=== PATIENT | female | born 1975 | race Caucasian/White ===

== ENCOUNTER 2017-07-20 20:45 | Emergency (ER) | payer BC, OTHER ==
[~2017-07-20] VITALS: Ht 172.7 cm; Wt 70.0 kg
[~2017-07-20 20:45] MED LIST: CLON0.5T3 PO; MELO15TA3 PO; MULT-506 PO; PSYL55.43 PO; ULT/50 PO
[2017-07-20 20:50] VITALS: TEMP 36.9; O2SAT 95; Ht 172.7 cm; Wt 70.0 kg
[2017-07-20] MEDS ORDERED: ACETAMINOPHEN 500 MG TAB PO STA (20:58)
[2017-07-20] MEDS ORDERED: IBUPROFEN 800 MG TAB PO STA (20:58)
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
[2017-07-20] MEDS ORDERED: ULT50 PO (21:25)
[2017-07-20] MEDS ORDERED: PSYL58.636 PO (21:29)
--- NOTE | 2017-07-20 21:32 | DIAGNOSTIC IMAGING REPORT ---
LEFT FEMUR 2 VIEWS CLINICAL HISTORY: Fall. Left leg pain. FINDINGS: AP, frog-leg, and crosstable lateral views of the left femur are obtained. No prior studies are available for comparison at the time of dictation. The skeletal structures are well mineralized. There is no radiographic evidence of left femoral fracture. The hip and knee joints appear maintained. The visualized left hemipelvis is preserved. The overlying soft tissues are normal in appearance. Phleboliths are noted in the pelvis. IMPRESSION: Unremarkable radiographic assessment of the left femur. Electronically signed by: Cholo Faust M.D. 07/20/2017 9:31 PM Dictated Date/Time: 07/20/2017 9:30 PM
[2017-07-20] MEDS ORDERED: OXYC1TAB3 PO (21:58)
[2017-07-20] MEDS ORDERED: OXYCODONE IR HOME PACK PO ONE (22:00)
[2017-07-20 22:12] VITALS: BP 124/80; PULSE 88
== END 2017-07-20 22:18 | disposition home or self-care (01) ==
LOC: C.EDB 20:47 → C.EDA 22:18
DX: S70.12XA Contusion of left thigh, initial encounter (principal); V27.5XXA Motorcycle passenger injured in collision with fixed or stationary object in traffic accident, initial encounter

== ENCOUNTER 2021-12-26 15:36 | Inpatient (IN) ==
[2021-12-26] MEDS ORDERED: SODIUM CHLORIDE 0.9% 1000ML 1,000 ML IV STA (15:55)
[2021-12-26] MEDS ORDERED: PROMETHAZINE 6.25 MG/50.25 ML BAG IV STA (15:59)
[2021-12-26] MEDS ORDERED: KETOROLAC TROMETHAMINE 15 MG/ML VIAL IV ONE (15:59)
--- NOTE | 2021-12-26 16:11 | Emergency Department Note ---
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 intracranial abnormality. 2. Unremarkable CT angiogram of the brain. 3. 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 This is new from the 07/18/2020 examination. 4. There is minimal focal narrowing of the right vertebral artery just below the aneurysm. A tiny focal dissection is not excluded. 5. Otherwise unremarkable CT angiogram of the neck. ACT 112: Negative or not required by law. Electronically signed by: Cholo Faust M.D. 12/26/2021 6:22 PM Neck CTA 12/26/21 17:[address] OF THE BRAIN; CT ANGIOGRAM OF THE BRAIN; CT ANGIOGRAM OF THE NECK CLINICAL HISTORY: Headache. Right-sided neck pain. COMPARISON STUDY: CT angiogram of the head and neck dated 07/18/2020. TECHNIQUE: Unenhanced axial CT scan of the brain is performed. Subsequently, following the IV administration of 119 of Optiray 320, CT angiogram of the head and neck was performed from the aortic arch to the vertex. Images are reviewed in the axial, sagittal, and coronal planes. 3-D MIPS images are created and assessed. IV contrast was administered without complication. All measurements were calculated based on NASCET criteria. A dose lowering technique was utilized adhering to the principles of ALARA. CT DOSE: 1098.67 mGy.cm FINDINGS: Brain parenchyma: The brain parenchyma is normal in appearance. There is no hemorrhage, mass effect, or evidence of acute territorial ischemia by CT criteria. There is no evidence of enhancing mass lesion on the angiogram phase images. The ventricles, sulci, and cisterns are normal in configuration. Morrissey- white matter differentiation is preserved. No extra-axial fluid collection is seen. Thoracic aorta: Visualized portions of the thoracic aorta are normal in caliber. The aortic arch demonstrates bovine variant anatomy. Right carotid arterial system: The right common carotid artery is widely patent, as are the right internal and external carotid arteries. Left carotid arterial system: The left common carotid artery is widely patent, as are the left internal and external carotid arteries. Vertebral arteries: The vertebral arteries are widely patent bilaterally and codominant. 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 There is minimal focal narrowing below the aneurysm seen on axial image #252. Subclavian arteries: Widely patent bilaterally. Intracranial vasculature: The internal carotid arteries are patent at the skull base, as are the anterior and middle cerebral arteries bilaterally. The left A1 segment is diminutive. There is origin of the left posterior cerebral artery. The vertebrobasilar system and posterior cerebral arteries are widely patent. The vertebral arteries are codominant. There is no aneurysm, high-grade stenosis, or focal vessel cut off seen throughout the intracranial circulation. Jugular veins: Patent bilaterally. Dural sinuses: Patent. Lung apices: Partially visualized upper lobe lung parenchyma appears clear. Soft tissues: The visualized pharyngeal soft tissues are normal in appearance noting angiographic phase technique. The oropharyngeal airway appears widely patent. The salivary and thyroid glands are normal in appearance. No cervical lymphadenopathy is seen. Skeletal structures: The calvarium appears intact. The cervical spine is within normal limits. Orbits: The bony orbits are intact. Orbital contents are normal as visualized. Sinuses and mastoids: There is mild mucosal thickening in the left maxillary antrum. The remaining paranasal sinuses are clear. The mastoid air cells are well pneumatized. IMPRESSION: 1. No acute intracranial abnormality. 2. Unremarkable CT angiogram of the brain. 3. 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 This is new from the 07/18/2020 examination. 4. There is minimal focal narrowing of the right vertebral artery just below the aneurysm. A tiny focal dissection is not excluded. 5. Otherwise unremarkable CT angiogram of the neck. ACT 112: Negative or not required by law. Electronically signed by: Cholo Faust M.D. 12/26/2021 6:22 PM Discharge Plan Visit Data Chief Complaint: Neck Injury/Pain Stated Complaint: RIGHT SIDE OF NECK PAIN, AFFECTS VISION ED Provider: Ernie Linda Discharge Problem: Dissecting hemorrhage of right vertebral artery, Vertigo, Acute neck pain Patient Disposition: Admitted As Inpatient Discharge Instructions Interventions: ED Discharge Assessment Last Done: 12/26/21 20:03
[2021-12-26 17:06] LABS: Basophils # (auto) 0.03 K/uL (0-0.2); Basophils % (auto) 0.4 %; Eosinophils % (auto) 2.4 %; Hematocrit (blood only) 41.1 % (37-47); Hemoglobin 13.9 g/dL (12.0-16.0); Immature Granulocytes # (auto) 0.01 K/uL (0.00-0.02); Immature Granulocytes % (auto) 0.1 %; Lymphocytes # (auto) 2.11 K/uL (1.2-3.4); Lymphocytes % (auto) 24.8 %; Mean Corpuscular Hemoglobin 30.3 pg (25-34); Mean Corpuscular Hgb Conc 33.8 g/dL (32-36); Mean Corpuscular Volume 89.5 fL (80-100); Mean Platelet Volume 9.6 fL (7.4-10.4); Monocytes % (auto) 8.2 %; Neutrophils # (auto) 5.46 K/uL (1.4-6.5); Neutrophils % (auto) 64.1 %; Platelet Count 278 K/uL (130-400); RDW Coefficient of Variation 13.6 % (11.5-14.5); RDW Standard Deviation 44.7 fL (36.4-46.3); Red Blood Count 4.59 M/uL (4.2-5.4); White Blood Count 8.51 K/uL (4.8-10.8)
[2021-12-26 17:13] LABS: D Dimer 200 ug/L FEU (0-500); INR 0.9 (0.9-1.1); Partial Thromboplastin Ratio 0.9; Partial Thromboplastin Time 23.9 Seconds (21.0-31.0); Prothrombin Time 9.7 Seconds (9.0-12.0)
--- NOTE | 2021-12-26 17:19 | XRay Report ---
XR chest 1V portable HISTORY: 46 years-old Female Chest Pain acute atypical chest pain COMPARISON: Chest radiograph and CTA chest 12/10/2020 TECHNIQUE: Portable AP view of the chest FINDINGS: The cardiomediastinal and hilar silhouettes are within normal limits. There is no pneumothorax, pleur al effusion, airspace consolidation or overt pulmonary edema. Bones of the chest appear grossly intac t. IMPRESSION: No acute process. ACT 112: Negative or not required by law. The above report was generated using voice recognition software. It may contain grammatical, syntax o r spelling errors. Electronically signed by: Corey James M.D. 12/26/2021 5:18 PM
[2021-12-26 17:29] LABS: Albumin Globulin Ratio 1.8 (0.9-2); Albumin Level 4.2 gm/dl (3.4-5.0); Bilirubin,Total 0.3 mg/dl (0.2-1.0); Calcium 9.3 mg/dl (8.5-10.1); Creatinine Clr Calc Pharmacy 126.7 ml/min; Est GFR (African American) 125.1 ml/min; Globulin 2.3 gm/dl (2.5-4.0); Total Protein 6.5 gm/dl (6.0-8.3)
[2021-12-26 17:48] LABS: Pregnancy Test, Serum Negative (Negative)
[2021-12-26] MEDS ORDERED: OPTIRAY 320 125ml IV ONE (17:52)
[2021-12-26 18:07] LABS: Influenza A virus by PCR Negative (Neg); Influenza B virus by PCR Negative (Neg); RSV by PCR Negative (Neg); SARS CoV2 RNA(COVID-19) InHosp NEGATIVE (Negative)
--- NOTE | 2021-12-26 18:24 | CT Scan Report ---
UNENHANCED CT OF THE BRAIN; CT ANGIOGRAM OF THE BRAIN; CT ANGIOGRAM OF THE NECK CLINICAL HISTORY: Headache. Right-sided neck pain. COMPARISON STUDY: CT angiogram of the head and neck dated 07/18/2020. TECHNIQUE: Unenhanced axial CT scan of the brain is performed. Subsequently, following the IV adminis tration of 119 of Optiray 320, CT angiogram of the head and neck was performed from the aortic arch t o the vertex. Images are reviewed in the axial, sagittal, and coronal planes. 3-D MIPS images are cre ated and assessed. IV contrast was administered without complication. All measurements were calculate d based on NASCET criteria. A dose lowering technique was utilized adhering to the principles of ALA RA. CT DOSE: 1098.67 mGy.cm FINDINGS: Brain parenchyma: The brain parenchyma is normal in appearance. There is no hemorrhage, mass effect, or evidence of acute territorial ischemia by CT criteria. There is no evidence of enhancing mass lesi on on the angiogram phase images. The ventricles, sulci, and cisterns are normal in configuration. Gr ay-white matter differentiation is preserved. No extra-axial fluid collection is seen. Thoracic aorta: Visualized portions of the thoracic aorta are normal in caliber. The aortic arch demo nstrates bovine variant anatomy. Right carotid arterial system: The right common carotid artery is widely patent, as are the right int ernal and external carotid arteries. Left carotid arterial system: The left common carotid artery is widely patent, as are the left product management internship al and external carotid arteries. Vertebral arteries: The vertebral arteries are widely patent bilaterally and codominant. 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 There i s minimal focal narrowing below the aneurysm seen on axial image #252. Subclavian arteries: Widely patent bilaterally. Intracranial vasculature: The internal carotid arteries are patent at the skull base, as are the ante rior and middle cerebral arteries bilaterally. The left A1 segment is diminutive. There is orig in of the left posterior cerebral artery. The vertebrobasilar system and posterior cerebral arteries are widely patent. The vertebral arteries are codominant. There is no aneurysm, high-grade stenosis, or focal vessel cut off seen throughout the intracranial circulation. Jugular veins: Patent bilaterally. Dural sinuses: Patent. Lung apices: Partially visualized upper lobe lung parenchyma appears clear. Soft tissues: The visualized pharyngeal soft tissues are normal in appearance noting angiographic pha se technique. The oropharyngeal airway appears widely patent. The salivary and thyroid glands are nor mal in appearance. No cervical lymphadenopathy is seen. Skeletal structures: The calvarium appears intact. The cervical spine is within normal limits. Orbits: The bony orbits are intact. Orbital contents are normal as visualized. Sinuses and mastoids: There is mild mucosal thickening in the left maxillary antrum. The remaining pa ranasal sinuses are clear. The mastoid air cells are well pneumatized. IMPRESSION: 1. No acute intracranial abnormality. 2. Unremarkable CT angiogram of the brain. 3. 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 Th is is new from the 07/18/2020 examination. 4. There is minimal focal narrowing of the right vertebral artery just below the aneurysm. A tiny foc al dissection is not excluded. 5. Otherwise unremarkable CT angiogram of the neck. ACT 112: Negative or not required by law. Electronically signed by: Cholo Faust M.D. 12/26/2021 6:22 PM
[2021-12-26 18:36] LABS: Appearance Urine Clear (Clear); Bilirubin Urine Negative (Negative); Blood Urine Negative (Negative); Color Urine Yellow; Glucose Urine UA Negative (Negative); Ketones Urine Negative (Negative); Leukocyte Esterase Urine Negative (Negative); Nitrite Urine Negative (Negative); Protein Urine Negative (Negative); Specific Gravity Urine 1.011 (1.000-1.030); Urobilinogen Urine Negative (Negative)
[2021-12-26] MEDS ORDERED: ASPIRIN 81 MG ECTAB PO STA (19:00)
[2021-12-26] MEDS ORDERED: ONDANSETRON INJ 2 MG/ML 2 ML VIAL IV PRN (19:00)
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
[2021-12-26] MEDS ORDERED: ACETAMINOPHEN 1,000 MG/100 ML VIAL IV STA (19:05)
[2021-12-26] MEDS ORDERED: LORazepam 0.5 MG TAB PO STA (19:18)
[2021-12-26] MEDS ORDERED: MoRPHine SULFATE 2 MG/ML CARP IV STA (20:21)
[2021-12-26 21:00] LABS: Chol HDL Ratio 2.5 (0-5)
[2021-12-26] MEDS: GABAPENTIN 400 MG CAP PO SCH (22:06)
[2021-12-26] MEDS ORDERED: LORazepam 0.5 MG TAB PO ONE (22:43)
[2021-12-27] MEDS ORDERED: MoRPHine SULFATE 2 MG/ML CARP IV STA ×2 (00:27→14:56)
[2021-12-27] MEDS: traZODone HCL 100 MG TAB PO PRN ×2 (03:33→22:43)
[2021-12-27] MEDS: ACETAMINOPHEN 325 MG TAB PO PRN ×4 (05:25→21:25)
[2021-12-27] MEDS: PANTOprazole 40 MG TAB PO SCH (06:19)
--- NOTE | 2021-12-27 07:19 | Magnetic Resonance Report ---
Brain MRI WITHOUT CONTRAST HISTORY: Headache. Neck pain. vertebral artery dissection r/o small CVA TECHNIQUE: Multiplanar multisequence MRI of the brain was performed without the use of contrast. COMPARISON STUDY: Head CT 12/26/2021. FINDINGS: There are no areas of restricted diffusion to suggest acute infarction. The midline structu res are intact. Mucosal thickening and a retention cyst within the left maxillary sinus. The remainin g paranasal sinuses are clear. The orbits are unremarkable. There are scattered punctate foci of T2 h yperintensity seen within the periventricular and subcortical white matter of the supratentorial brai n.. The mastoid air cells are clear. The ventricles and sulci are within normal limits for age. There is no mass, hematoma, midline shift. The major vascular flow-voids at the skull base are well mainta ined. IMPRESSION: 1. No acute infarct or intracranial hemorrhage. 2. A few scattered punctate foci of T2 hyperintensity seen within the white matter of the supratentor ial brain. These are nonspecific but could represent early microvascular ischemic change or migraines . A demyelinating disease is considered less likely but not entirely excluded. ACT 112: Negative or not required by law. Electronically signed by: Dom Jean Baptiste M.D. 12/27/2021 7:16 AM
[2021-12-27] MEDS: ASPIRIN 81 MG ECTAB PO SCH (07:56)
[2021-12-27] MEDS: MAGNESIUM OXIDE 400 MG TAB PO SCH (07:56)
[2021-12-27] MEDS: GABAPENTIN 400 MG CAP PO SCH ×2 (07:56→20:22)
[2021-12-27] MEDS ORDERED: ASPIRIN 81 MG CHEW ONE (08:00)
--- NOTE | 2021-12-27 08:20 | Hospitalist Progress Note ---
Date of Service December 27, 2021 Assessment & Plan (1) Vertebral artery aneurysm: Plan: 46-year-old female history of anxiety, cervical radiculopathy admitted for vertebral artery aneurysm/dissection. Vertebral artery dissection: - Patient presents with several weeks of relapsing remitting neck pain and headache with a history of cracking her neck. She also sees a chiropractor who does not do high velocity techniques but rather does deep tissue massage on her neck. - CT head normal. - CTA neck reveals right vertebral artery 3 mm aneurysm with possible tiny focal dissection directly below the aneurysm. - MRI brain: No acute infarct or intracranial hemorrhage. A few scattered punctate foci of T2 hyperintensity seen within the white matter of the supratentorial brain. These are nonspecific but could represent early microvascular ischemic change or migraines. A demyelinating disease is considered less likely but not entirely excluded. without contrast ordered to rule out small stroke. -Continue aspirin 81 mg daily. - Hypertension management; BP goal <140/90. -Cholesterol 235, LDL 123 -BSG normal on admission and patient has had food today; no evidence of diabetes. -Patient is neither a current or former smoker. Hypercoagulability labs on admission ordered given few preceding risk factors Patient with acute worsening of symptoms including headache and neck pain to 05/27 morning of 12/27, repeat CTA head and neck/CT head without worsening change/expansion, appears same as prior. No evidence of stroke on CT-H. Discussed with neurology, recommended [facility] consult if worsening; given stability on imaging recommend continuing antiplatelet and symptomatic treatment. May use multimodal approach Tylenol, Toradol, consideration of short steroid burst if needed. No indication for transfer at this time, was seen by vascular surgery who noted dissection is at C1 level and if endovascular approach was required would acquire transfer to tertiary care. -Monitor clinically overnight, continue pain control as noted Anxiety: Continue trazodone as needed for sleep. Cervical radiculopathy Follows with pain management, has had history of injections Manage vertebral artery dissection above, outpatient follow-up for radiculopathy Continue home gabapentin Code Status: FULL CODE FEN: Heart healthy diet DVT ppx: SCDs Dispo: Med/Surg with Telemetry (2) Vertebral artery dissection: (3) Anxiety: (4) Cervical radiculopathy: (5) Chronic gastroesophageal reflux disease: Admission and Anticipated Discharge Date Admission Date: December 26, 2021 Subjective Seen at the bedside this morning. She reports this morning she has had right- sided neck and facial pain with predominantly right-sided headache. This is worse since last night. Notes her vision overall is sharp but thinks her right eye is a little bit more blurry than the left this morning. Denies nausea, vomiting, and diarrhea. Endorses global weakness, denies focal weakness. Reports that sensation feels the same in her upper and lower extremities. Repeat CTA/CT head pending at time of assessment. Did review with neurology, see assessment and plan for additional Review of Systems Review of Systems: All systems reviewed & are unremarkable except as noted in Subjective Physical Exam Physical Exam: General: A&Ox3. NAD. Cooperative. HEENT: Atraumatic, normocephalic. Pupils equal and reactive to light and accommodation. Visual acuity in right eye subjectively slightly diminished to left, improved on later reassessment. Sensation intact in all facial distributions, subjectively different per patient due to headache on the right. Facial asymmetry. Tongue protrudes midline. Hearing grossly intact. Pulm: CTAB A&P. -wheezes, -rales, -rhonchi. Symmetrical chest rise. No increase in work of breathing. No respiratory distress. Cardiac: RRR, -mrg. Radial pulses intact and symmetrical. Abdominal: Nontender, nondistended, soft. BS present. Ankle dorsiflexion/plantarflexion, hip flexion, circus agent strength, elbow flexion intact bilaterally and symmetrical Results & Data Results & Data ([facility]) Vital Signs (Past 12 Hours) Vital Signs Temp Pulse Pulse Pulse Resp BP BP 12/27/21 07:21 36.8 C 74 20 122/75 12/27/21 03:33 36.6 C 74 18 122/79 12/26/21 23:00 36.4 C L 78 18 111/73 12/26/21 20:41 67 12/26/21 20:16 36.4 C L 67 16 130/89 Pulse Ox 12/27/21 07:21 97 12/27/21 03:33 96 12/26/21 23:00 100 12/26/21 20:41 12/26/21 20:16 100 PG Care Time/CCT Total # of Minutes Spent Total Time Spent with Patient: Total time spent is greater than 50% in coordination of care (as documented) at patient's floor/unit and/or counseling patient: Coding Level of Care Code 33134 Subseq Hosp Care Lvl 3 Diagnoses Vertebral artery aneurysm I72.6 Vertebral artery dissection I77.74 Anxiety F41.9 Cervical radiculopathy M54.12 Chronic gastroesophageal reflux disease K21.9
[2021-12-27] MEDS: VENLAFAXINE HCL XR 150 MG CAPXR PO SCH (10:13)
[2021-12-27] MEDS ORDERED: OPTIRAY 320 125ml IV ONE (10:22)
--- NOTE | 2021-12-27 10:26 | CT Scan Report ---
HEAD CT NONCONTRAST CT DOSE: HISTORY: Worsening headache. TECHNIQUE: Multiaxial CT images of the head were performed without the use of intravenous contrast. A utomated exposure control was utilized for this study. A dose lowering technique was utilized adheri ng to the principles of ALARA. Comparison: Head CT 12/26/2021. Findings: The paranasal sinuses and mastoid air cells are clear. The calvarium and skull base are int act. The ventricles and sulci are within normal limits. There is no mass, hematoma, midline shift, or acute infarct. Impression: No acute intracranial abnormality. ACT 112: Negative or not required by law. Electronically signed by: Dom Jean Baptiste M.D. 12/27/2021 10:25 AM
--- NOTE | 2021-12-27 11:04 | CT Scan Report ---
CT ANGIOGRAM OF THE BRAIN; CT ANGIOGRAM OF THE NECK CLINICAL HISTORY: Headache. Right-sided neck pain. Abnormal right vertebral artery seen on yesterday' s examination. COMPARISON STUDY: CT angiograms of the head and neck dated 12/26/2021 and 07/18/2020. TECHNIQUE: Following the IV administration of 120 of Optiray 320, CT angiogram of the head and neck w as performed from the aortic arch to the vertex. Images are reviewed in the axial, sagittal, and sammie nal planes. 3-D MIPS images are created and assessed. IV contrast was administered without complicati on. All measurements were calculated based on NASCET criteria. A dose lowering technique was utilize d adhering to the principles of ALARA. CT DOSE: 1011.92 mGy.cm FINDINGS: Brain parenchyma: The brain parenchyma is normal in appearance. There is no evidence of hemorrhage, m ass effect, or acute territorial ischemia noting angiographic phase technique. There is no evidence o f enhancing mass lesion on the angiogram phase images. The ventricles, sulci, and cisterns are normal in configuration. Morrissey-white matter differentiation is preserved. No extra-axial fluid collection is seen. Thoracic aorta: Visualized portions of the thoracic aorta are normal in caliber. The aortic arch demo nstrates bovine variant anatomy. Right carotid arterial system: The right common carotid artery is widely patent, as are the right int ernal and external carotid arteries. Left carotid arterial system: The left common carotid artery is widely patent, as are the left international flight attendant al and external carotid arteries. Vertebral arteries: The vertebral arteries are widely patent bilaterally and codominant. There is a 3 mm aneurysm of the right vertebral artery at the level of C2, best seen on axial image #265. There i s minimal focal narrowing below the aneurysm seen on axial image #259. Subclavian arteries: Widely patent bilaterally. Intracranial vasculature: The internal carotid arteries are patent at the skull base, as are the ante rior and middle cerebral arteries bilaterally. The left A1 segment is diminutive. There is orig in of the left posterior cerebral artery. The vertebrobasilar system and posterior cerebral arteries are widely patent. The vertebral arteries are codominant. There is no aneurysm, high-grade stenosis, or focal vessel cut off seen throughout the intracranial circulation. Jugular veins: Patent bilaterally. Dural sinuses: Patent. Lung apices: Partially visualized upper lobe lung parenchyma appears clear. Soft tissues: The visualized pharyngeal soft tissues are normal in appearance noting angiographic pha se technique. The oropharyngeal airway appears widely patent. The salivary and thyroid glands are nor mal in appearance. No cervical lymphadenopathy is seen. Skeletal structures: The calvarium appears intact. The cervical spine is within normal limits. Orbits: The bony orbits are intact. Orbital contents are normal as visualized. Sinuses and mastoids: There is mild mucosal thickening in the left maxillary antrum. The remaining pa ranasal sinuses are clear. The mastoid air cells are well pneumatized. IMPRESSION: 1. No acute intracranial abnormality is identified noting angiographic phase technique. 2. Unremarkable CT angiogram of the brain. No change from yesterday. 3. 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 This is new from the 07/18/2020 examination but unchanged from yesterday. 4. There is focal narrowing of the right vertebral artery just below the aneurysm suspicious for a fo suzette dissection. This is unchanged from yesterday. 5. Otherwise unremarkable CT angiogram of the neck. ACT 112: Negative or not required by law. Electronically signed by: Cholo Faust M.D. 12/27/2021 11:02 AM
[2021-12-27] MEDS ORDERED: KETOROLAC TROMETHAMINE 15 MG/ML VIAL IV ONE (11:53)
[2021-12-27] MEDS: GABAPENTIN 300 MG CAP PO SCH ×2 (14:02→20:20)
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
--- NOTE | 2021-12-28 04:41 | Billing Data ---
Date of Service December 28, 2021 Coding Level of Care Code 94326 Initial Inpt Care Lvl 3
[2021-12-28] MEDS: PANTOprazole 40 MG TAB PO SCH (05:53)
[2021-12-28] MEDS: ACETAMINOPHEN 325 MG TAB PO PRN ×2 (05:54→12:01)
[2021-12-28 06:50] LABS: Basophils # (auto) 0.03 K/uL (0-0.2); Basophils % (auto) 0.4 %; Eosinophils # (auto) 0.23 K/uL (0-0.5); Eosinophils % (auto) 2.9 %; Hematocrit (blood only) 43.2 % (37-47); Hemoglobin 14.5 g/dL (12.0-16.0); Immature Granulocytes # (auto) 0.02 K/uL (0.00-0.02); Immature Granulocytes % (auto) 0.2 %; Lymphocytes # (auto) 1.74 K/uL (1.2-3.4); Lymphocytes % (auto) 21.6 %; Mean Corpuscular Hemoglobin 29.7 pg (25-34); Mean Corpuscular Hgb Conc 33.6 g/dL (32-36); Mean Corpuscular Volume 88.5 fL (80-100); Mean Platelet Volume 9.4 fL (7.4-10.4); Monocytes # (auto) 0.84 K/uL (0.11-0.59); Monocytes % (auto) 10.4 %; Neutrophils % (auto) 64.5 %; Platelet Count 272 K/uL (130-400); RDW Coefficient of Variation 13.9 % (11.5-14.5); RDW Standard Deviation 44.9 fL (36.4-46.3); Red Blood Count 4.88 M/uL (4.2-5.4); White Blood Count 8.06 K/uL (4.8-10.8)
[2021-12-28 07:22] LABS: BUN Creatinine Ratio 38.1 (10-20); Calcium 8.5 mg/dl (8.5-10.1); Creatinine Clr Calc Pharmacy 122.5 ml/min; Est GFR (African American) 123.8 ml/min; Est GFR (Non-African American) 106.8 ml/min; Potassium 4.1 mmol/L (3.5-5.1)
[2021-12-28] MEDS: MAGNESIUM OXIDE 400 MG TAB PO SCH (08:01)
[2021-12-28] MEDS: VENLAFAXINE HCL XR 150 MG CAPXR PO SCH (08:01)
[2021-12-28] MEDS: ASPIRIN 81 MG ECTAB PO SCH (08:01)
[2021-12-28] MEDS: GABAPENTIN 400 MG CAP PO SCH (08:01)
--- NOTE | 2021-12-28 12:12 | Discharge Summary ---
Date of Service December 28, 2021 Admission HPI Per Admitting Provider 46-year-old female history of anxiety, cervical radiculopathy presented to the ER for 2 weeks of worsening neck ache and headache, and she was referred to the ER by her primary doctor for possibility of meningitis. She reports an history that she does see a chiropractor regularly for deep tissue massage but no high velocity therapies, but she does crack her own neck regularly. In the ER patient was noted to have normal CBC and BMP. Chest x-ray noted to be normal. CT neck showed a 3 mm aneurysm of the right vertebral artery below the skull base at the level of C1 as well as minimal focal narrowing just below the aneurysm, possibly suggestive of tiny focal dissection. Hospitalist service was consulted for admission. Principal Diagnosis Vertebral artery aneurysm 3 mm, possible point dissection Discharge Exam General: A&Ox3. NAD. Cooperative. HEENT: Atraumatic, normocephalic. Pupils equal and reactive to light and accommodation. Visual acuity in right eye subjectively slightly diminished to left, improved on later reassessment. Sensation intact in all facial distributions, symmetrical today. tongue protrudes midline. Hearing grossly intact. Pulm: CTAB A&P. -wheezes, -rales, -rhonchi. Symmetrical chest rise. No increase in work of breathing. No respiratory distress. Cardiac: RRR, -mrg. Radial pulses intact and symmetrical. Abdominal: Nontender, nondistended, soft. BS present. Ankle dorsiflexion/plantarflexion, hip flexion, acetylene gas compressor strength, elbow flexion intact bilaterally and symmetrical Discharge Data Allergies Allergy/AdvReac Type Severity Reaction Status Date / Time latex Allergy Intermediate Rash Verified 12/26/21 16:43 Sulfa (Sulfonamide Allergy Intermediate THROAT Verified 12/26/21 16:43 Antibiotics) ITCHING, HIVES Consultations 12/26/21 18:44 ED Decision to Admit Stat 12/26/21 19:00 Consult Vascular Surgery Routine 12/28/21 10:05 Burn CD for patient Routine Ordered Studies 12/26/21 17:30 CT angio head w con Stat CT angio neck with con Stat CT head/brain wo con Stat 12/26/21 19:39 MR brain wo con Stat 12/27/21 07:54 CT angio head w con Stat CT angio neck with con Stat 12/27/21 08:18 CT head/brain wo con Stat Hospital Course (1) Vertebral artery aneurysm: 46-year-old female history of anxiety, cervical radiculopathy admitted for vertebral artery aneurysm/dissection. To do as outpatient: 1. Follow-up as outpatient with neurology 2. Continue DAPT with aspirin/Plavix 3. Consider tertiary care vascular referral for follow-up 4. Follow-up on coagulopathy labs when results available 5. Routine follow-up to PCP Vertebral artery dissection: - Patient presents with several weeks of relapsing remitting neck pain and headache with a history of cracking her neck. She also sees a chiropractor who does not do high velocity techniques but rather does deep tissue massage on her neck. - CT head normal. - CTA neck reveals right vertebral artery 3 mm aneurysm with possible tiny focal dissection directly below the aneurysm. - MRI brain: No acute infarct or intracranial hemorrhage. A few scattered punctate foci of T2 hyperintensity seen within the white matter of the supratentorial brain. These are nonspecific but could represent early clau rovascular ischemic change or migraines. A demyelinating disease is considered less likely but not entirely excluded. without contrast ordered to rule out small stroke. -Continue aspirin 81 mg daily. - Hypertension management; BP goal <140/90. -Cholesterol 235, LDL 123 -BSG normal on admission and patient has had food today; no evidence of diabetes. -Patient is neither a current or former smoker. Hypercoagulability labs on admission ordered given few preceding risk factors Patient with acute worsening of symptoms including headache and neck pain to 10/10 morning of 12/27, repeat CTA head and neck/CT head without worsening change/expansion, appears same as prior. No evidence of stroke on CT-H. Discussed with neurology, recommended [facility] consult if worsening; given stability on imaging recommend continuing antiplatelet and symptomatic treatment. Improved with Tylenol and Toradol, pain tolerable at time of discharge and greatly improved to her prior baseline. No indication for transfer at this time, was seen by vascular surgery who noted dissection is at C1 level and if endovascular approach was required for worsening would require tertiary care. Recommended addition of Plavix to aspirin at this time Patient discharged on aspirin/Plavix DAPT Anxiety: Continue trazodone as needed for sleep. Cervical radiculopathy Follows with pain management, has had history of injections Manage vertebral artery dissection above, outpatient follow-up for radiculopathy Continue home gabapentin Code Status: FULL CODE FEN: Heart healthy diet DVT ppx: SCDs Dispo: Med/Surg with Telemetry (2) Vertebral artery dissection: (3) Anxiety: (4) Cervical radiculopathy: (5) Chronic gastroesophageal reflux disease: Total Time Total Time Spent Total Time Spent (In Minutes): Time spend day of discharge 65 minutes including direct patient care, documentation, review of labs and images, and coordination of care. Discharge Plan Discharge Items Patient Disposition: Home - Self-Care Reason For Visit: VERTRABRAL ARTERY ANERYSM/DISSECTION Discharge Diagnosis: Vertebral artery aneurysm/dissection Activity: As commented below Non-emergency contact: Primary Care Provider and Neurologist Call non-emergency contact if: you have any medication questions, your symptoms worsen and your pain is not controlled Follow-up/Referrals: Joel Mendoza MD [Physician] - Néstor Ochoa III, CRNP [Primary Care Provider] - 01/07/22 4:00 pm Diet: Regular Addtl Attending Provider Instructions: You are seen in the hospital for neck pain and headache. A CT angiogram of your head and neck showed a 3 mm aneurysm of the right vertebral artery below the skull base at the level of C1 new from 2019 with minimal focal narrowing of the artery just below the aneurysm, which could represent a tiny focal dissection. Your CT of your head, and brain MRI did not show any evidence of stroke. You did have worsening pain following observation overnight and a repeat CT angiogram was performed which showed no change in these findings and no sign of a stroke. Her case was reviewed with neurology and vascular surgery. It was recommended that you start a low-dose aspirin as noted below. On further discussion it was recommended to add plaavix to this as well. If your dissection had expanded this would require treatment at a tertiary care center, however this was not observed and transfer was not indicated at time of hospitalization. It was recommended that you follow-up with neurology as an outpatient. Please continue to take aspirin 81 mg daily and plaavix 75mg daily. You may continue to take Tylenol for pain, you may take Tylenol 500-650 mg every 4-6 hours. Do not take more than 30 to 50 mg of Tylenol in a 24-hour period, and do not drink alcohol while taking Tylenol. Please limit activity to lifting no more than a milk jug and weight. You should not have vigorous activity/manipulation of your neck including chiropractic adjustments or yoga stretches to your neck at this time. If you develop any new or worsening symptoms including fever, chills, sweats, chest pain, chest pressure, difficulty breathing, uncontrolled nausea/vomiting, rash, wheezing, passing out or nearly passing out, bleeding, black/bloody bowel movements, or other new or concerning symptoms please call your primary care physicia, or call 911 for re-evaluation in the emergency department if you are very concerned. Pending Studies at Discharge: No Stand-Alone Forms: My [facility], Smoking Cessation Medications and DC Order Prescriptions: New aspirin 81 mg Tablet,Delayed Release (Dr/Ec) 81 mg PO DAILY 30 Days Qty: 30 RF: 0 clopidogrel 75 mg tablet 75 mg PO DAILY Qty: 30 RF: 0 Continued pantoprazole [Protonix] 40 mg tablet,delayed release (DR/EC) 40 mg PO DAILYBB RF: 0 [place] Oil 1,000 mg Capsule 1 cap PO DAILY RF: 0 magnesium oxide 400 mg magnesium Tablet 400 mg PO DAILY RF: 0 Probiotic/Menapause 1 tab PO DAILY RF: 0 gabapentin 400 mg capsule 400 mg PO AMHS RF: 0 trazodone 100 mg tablet 100 mg PO HS PRN (Reason: Sleep) RF: 0 gabapentin [Neurontin] 300 mg capsule 300 mg PO .DAILY AT 1400 RF: 0 Effexor XR 150 mg 150 mg PO DAILY RF: 0 Discharge Orders: Discharge Order (Routine); Ordered 12/28/21 Ordered By: Anuj Lieberman Admission Data Admit Date/Time: 12/26/21 19:00 Attending Provider: Anuj Lieberman Admit Provider: Esther Whitt Primary Care Provider: Néstor Ochoa III Other Providers: Anuj Lieberman ; Preet Escobar Other Interventions: Discharge Summary Assessment (RN) Last Done: 12/28/21 10:13 Coding Level of Care Code D/C DAY MANAGEMENT >30 MINS Diagnoses Vertebral artery aneurysm I72.6 Vertebral artery dissection I77.74 Anxiety F41.9 Cervical radiculopathy M54.12 Chronic gastroesophageal reflux disease K21.9
--- NOTE | 2021-12-28 14:34 | Electrocardiogram Report ---
Test Reason : Blood Pressure : / mmHG Vent. Rate : 078 BPM Atrial Rate : 078 BPM P-R Int : 144 ms QRS Dur : 070 ms QT Int : 370 ms P-R-T Axes : 023 016 038 degrees QTc Int : 421 ms Poor data quality, interpretation may be adversely affected Normal sinus rhythm Normal ECG When compared with ECG of 10-DEC-2020 08:30, No significant change was found Confirmed by Jesús Lazcano ([id number]) on 12/28/2021 2:33:52 PM Referred By: Néstor Ochoa Confirmed By:Jesús Lazcano
--- NOTE | 2021-12-28 15:49 | Electrocardiogram Report ---
Test Reason : Blood Pressure : / mmHG Vent. Rate : 066 BPM Atrial Rate : 066 BPM P-R Int : 150 ms QRS Dur : 072 ms QT Int : 404 ms P-R-T Axes : 032 040 037 degrees QTc Int : 423 ms Normal sinus rhythm Normal ECG When compared with ECG of 26-DEC-2021 16:27, No significant change was found Confirmed by Jesús Lazcano ([id number]) on 12/28/2021 3:49:11 PM Referred By: Néstor Ochoa Confirmed By:Jesús Lazcano
[2021-12-31 23:48] LABS: Anti Cardiolipin Ab IgG <2.0 GPL-U/mL; Anti Cardiolipin Ab IgM 4.6 MPL-U/mL; Anti-Thrombin III Activity 119 % normal (80-135); B2 Glycoprotein IgG <2.0 U/mL (<20.0); B2 Glycoprotein IgM 7.3 U/mL (<20.0); PTT LA Screen 29 sec (<=40); Protein S Functional(Activity) 98 % (60-140)
== END 2021-12-28 13:39 | disposition home or self-care (01) | DRG 299 ==
LOC: ED 15:36 → 2N 19:00